=== PATIENT | female | born 1935 | race Caucasian/White ===

== ENCOUNTER → 2020-11-09 | Outpatient (CLI) | payer OTHER, MEDICAID ==
[2016-07-03 11:40] VITALS: BP 125/60
[~2020-11-09] MED LIST: ACET650T10 PO; ALBU2.5V8 IH; AMLO-187 PO; ASPI-630 PO; ATOR20TA58 PO; ATORVASTATIN CA80 MG PO; CLOP75TA PO; DOCU100T11 PO; HYDR-3164 PO; INUL2.5T PO; LISI-130 PO; REGADENOSON 0.4 MG/5 ML DISP.SYRIN. IV ONE; SERT50TA PO; TIOT18CA IH
--- NOTE | 2020-11-09 14:16 | CARD ---
MR#: [id number] Date of Study: 11/09/2020 Ordering Physician: DELTA LOVE, Referring Physician: Kirsten TRIANA: Deyanira Avila [facility] APPROVED REPORT EXAM: Two-dimensional and M-mode echocardiogram with Doppler and color Doppler. Other Information Quality : Technically LimitedHR: 69bpm Rhythm : NSRAtrial Fibrillation INDICATION Chest Pain RISK FACTORS Obesity Hyperlipidemia 2D DIMENSIONS RVDd2.4 (2.9-3.5cm)Left Atrium(2D)4.4 (1.6-4.0cm) IVSd1.1 (0.7-1.1cm)Aortic Root(2D)2.8 (2.0-3.7cm) LVDd3.2 (3.9-5.9cm)LVOT Diameter2.1 (1.8-2.4cm) PWd1.1 (0.7-1.1cm)LVDs2.9 (2.5-4.0cm) FS (%) 8.9 %SV8.3 ml Aortic Valve AoV Peak Talib.169.3cm/sAoV VTI29.1cm AO Peak GR.11.5mmHgLVOT Peak Talib.118.6cm/s AO Mean GR.5mmHgAVA (VMAX)2.47cm2 Mitral Valve MV E Wbrtefpa44.2cm/sMV DECEL MSXP680lb MV A Hwmycljn698.5cm/sE/A Ratio0.6 Tricuspid Valve TR P. Fhqsrtyk720ev/sTR Peak Gr.19mmHg LEFT VENTRICLE The left ventricle is normal size. There is mild concentric left ventricular hypertrophy. The left ve ntricular systolic function is normal and the ejection fraction is within normal range. Estimated ej ection fraction 60-65%. There is normal LV segmental wall motion. Transmitral Doppler flow pattern is Grade I-abnormal relaxation pattern. RIGHT VENTRICLE The right ventricle is normal size. There is normal right ventricular wall thickness. The right ventr icular systolic function is normal. ATRIA The left atrium size is normal. The right atrium size is normal. The interatrial septum is intact wit h no evidence for an atrial septal defect or patent foramen ovale as noted on 2-D or Doppler imaging. AORTIC VALVE The aortic valve is normal in structure and function. Doppler and Color Flow revealed no significant aortic regurgitation. There is no significant aortic valvular stenosis. MITRAL VALVE The mitral valve is normal in structure and function. There is no evidence of mitral valve prolapse. There is no mitral valve stenosis. Doppler and Color-flow revealed trace mitral regurgitation. TRICUSPID VALVE The tricuspid valve is normal in structure and function. Doppler and Color Flow revealed trace tricus pid valve regurgitation. PULMONIC VALVE The pulmonary valve is normal in structure and function. Doppler and Color Flow revealed no pulmonic valvular regurgitation. GREAT VESSELS The aortic root is normal in size. The ascending aorta is normal in size. The IVC is normal in size a nd collapses >50% with inspiration. PERICARDIAL EFFUSION There is no evidence of significant pericardial effusion. Critical Notification Critical Value: No <Conclusion> The left ventricle is normal size. The left ventricular systolic function is normal and the ejection fraction is within normal range. Estimated ejection fraction 60-65%. There is mild concentric left ventricular hypertrophy. Doppler and Color Flow revealed no significant aortic regurgitation. There is no significant aortic valvular stenosis. Doppler and Color-flow revealed trace mitral regurgitation. Doppler and Color Flow revealed trace tricuspid valve regurgitation. Signed by : Steven Da Silva MD Electronically Approved : 11/09/2020 14:14:50
--- NOTE | 2020-11-13 10:15 | RAD ---
MR#: [id number] Date of Study: 11/09/2020 Ordering Physician: DELTA LOVE, Referring Physician: RADHA TRIANA Tech: RT Christiano Henry) (N) APPROVED REPORT Test Type: Pharmacological Stress Nurse/Tech: Rebecca Lopez RN Test Indications: CAD Cardiac History: Hypertension,CABGx3 2004 Medications: See Electronic Medical Record Medical History: See Electronic Medical Record Resting ECG: SB with BBB and PVCs Resting Heart Rate: 59 bpm Resting Blood Pressure: 166/56mmHg Pretest Chest Pain: No chest pain Nurse/Tech Notes S1,S2 and lungs diminished throughtout. Consent: The procedure was explained to the patient in lay terms. Informed consent was witnessed. Leno eout was entered into [employer]. History and Stress Test performed by RT Carl (Gui) (N) Pharm. Details Pharmacologic stress testing was performed using 0.4mg per 5ml of regadenoson given intravenously ove r 7-10 seconds. Stress Symptoms No chest pain or symptoms. POST EXERCISE Reason for Termination: Infusion complete Target HR: No Max HR: 87 bpm 76% of Maximum Predicted HR: 114 bpm Max Blood Pressure: 165/47mmHg Blood Pressure response to exercise: Normal blood pressure response during stress. Heart Rate response to exercise: WNL Chest Pain: No. Arrhythmia: Yes. PVCs INTERPRETATION Stress EKG Conclusion: The resting EKG shows a sinus rhythm, right bundle and nonspecific T wave ayon ges. The stress EKG shows no significant change from baseline. No EKG evidence of stress-induced ischemia. Imaging Protocol IMAGE PROTOCOL: Rest Tc-99m/stress Tc-99m 1 day Rest: Stress: Viability: Radiopharm.Tc99m GgexzvaacZu95n Sestamibi Dose10.7mCi 32mCi Duration 13min. 13min. Img Date 11/09/2020 11/09/2020 Inj-Img [id number]. 45min. Rest Admin Site:IV - Left AntecubitalAdministrator:RT Christiano Henry)(N) Stress Admin Site: IV - Left AntecubitalAdministrator: Ananth Diaz, RT (R)(N) STRESS DATA End Diast. Vol.33.0mlLVEDV index BSA19.0ml End Syst. Vol.1.0mlLVESV index BSA1.0ml Myocardial Mass67.0gEject. Yqdtmazq20.0% Stress Scores Regional WT0.00Summed WT5.00 Regional WM0.00Summed WM0.00 LV Perfusion The stress scans show a small lateral wall defect. The rest scans showed no significant defects. Nuclear imaging shows a relatively small area of reversible ischemia in the lateral wall. Wall Motion Left ventricular systolic function is normal with no regional wall motion abnormalities and an ejecti on fraction of greater than 70%. LV Perf. Quant 17 Seg. SSS8.00 17 Seg. SRS9.00 17 Seg. SDS2.00 Stress Defect Extent (% LAD)0.00Rest Defect Extent (% LAD)11.90Rev. Defect Extent (% LAD)0.00 Stress Defect Extent (% LCX) 71.30Rest Defect Extent (% LCX)65.00Rev. Defect Extent (% LCX)0.00 Stress Defect Extent (% RCA)0.00Rest Defect Extent (% RCA)0.00Rev. Defect Extent (% RCA)0.00 Stress Defect Extent (% BERNARDINO)13.00Rest Defect Extent (% BERNARDINO)16.50Rev. Defect Extent (% BERNARDINO)0.00 Conclusion 1. The patient is an 85-year-old female post bypass surgery. 2. No EKG evidence of stress-induced ischemia. 3. Nuclear imaging shows a relatively small area of reversible ischemia in the lateral wall. 4. Left ventricular systolic function is normal with no regional wall motion abnormalities and an eje ction fraction of greater than 70%. 5. Moderate to moderately low risk Lexiscan nuclear stress test. Signed by : Steven Da Silva MD Electronically Approved : 11/09/2020 14:05:43
== END ==
LOC: NM 08:29
PROVIDERS: ATTEND Internal Medicine Cardiovascular Disease
DX: I25.10 Atherosclerotic heart disease of native coronary artery without angina pectoris (principal); I51.7 Cardiomegaly
CPT/HCPCS: 78452; 93017; 93306; A9500; J2785

== ENCOUNTER 2021-06-30 15:06 | Emergency (ER) | payer OTHER, MEDICAID ==
[~2021-06-30] VITALS: Ht 160 cm; Wt 65.9 kg
[~2021-06-30 15:06] MED LIST changes: -REGADENOSON 0.4 MG/5 ML DISP.SYRIN. IV ONE
[2021-06-30] MEDS ORDERED: IV NORMAL SALINE 1000ML BAG 1,000 ML IV ONE (15:30)
--- NOTE | 2021-06-30 15:52 | RAD ---
EXAMINATION: Chest and pelvis radiographs. VIEWS: Single view of the chest and single view of the pelvis COMPARISON: Chest radiograph dated 06/01/2016 INDICATION:86 years, Female, status post fall, pain and weakness. FINDINGS: Chest: Normal cardiomediastinal silhouette. . Patchy airspace opacity in the right lung base. No ple ural effusion or pneumothorax. No acute osseous process. Median sternotomy wires. Pelvis: No acute fracture, dislocation or subluxation. No soft tissue swelling. Mild degenerative elías nges in both hips and sacroiliac joints. Vascular calcifications in the right upper thigh and pelvis. Partial visualized stents. Moderate amount of stool in the rectum. IMPRESSION: 1. Patchy airspace opacity in the right lung base may represent atelectasis, fibrotic changes, aspira tion or pneumonia. 2. No acute osseous process in the pelvis. Electronically signed by: Delisa Esparza MD (06/30/2021 3:50 PM) [facility]
--- NOTE | 2021-06-30 15:58 | RAD ---
Examination: CT head and cervical spine without contrast CT HEAD INDICATION: Reason: pain, head injury/swelling, s/p fall / Spl. Instructions: / History: COMPARISON: 07/03/2016 Exposure: One or more of the following individualized dose reduction techniques were utilized for thi s examination: 1. Automated exposure control 2. Adjustment of the mA and/or kV according to patient size 3. Use of iterative reconstruction technique TECHNIQUE: 5 mm contiguous axial images were obtained from the skull base to the vertex in both bone and soft tissue algorithm. FINDINGS: Moderate bilateral periventricular white matter hypodensities likely chronic small vessel ischemic di sease. Moderate-sized hypodensity identified in the left frontoparietal hypodensity likely old infarc t. Moderate size hematoma identified in the left posterior parietal scalp. No extra-axial fluid collec tions. No mass effect or midline shift. Ventricular size is appropriate. Basal cisterns are patent. No fractures identified.Shearer-white differentiation is preserved.Globes and orbits are within normal l imits. Paranasal sinuses and mastoid air cells are clear. CT CERVICAL SPINE INDICATION: Reason: pain, head injury/swelling, s/p fall / Spl. Instructions: / History: COMPARISON: 07/03/2016. Technique: 2.5 mm contiguous axial images were obtained from the skull base through the cervicothorac ic junction in both bone and soft tissue algorithm. Additional sagittal and coronal reconstructions were also performed. FINDINGS: Vertebral body height and alignment are maintained. Cervical lordosis is preserved. The l ateral masses of C1 are aligned upon C2. No fractures identified. The bony canal is patent throughout. Moderate intervertebral disc height loss identified in the cervical spine. The paraspinous soft tissues are unremarkable. Visualized intracranial contents are unremarkable. Li near opacification identified in the left apical lung probably scarring changes. IMPRESSION: 1. No acute intracranial findings. Moderate size hematoma identified in the left posterior parietal scalp. 2. Moderate-sized hypodensity identified in the left frontoparietal lobe likely old infarct. 3. No acute fracture cervical spine. 4. Moderate degenerative changes cervical spine. Electronically signed by: Savage Portillo MD (06/30/2021 3:55 PM) [id number]
[2021-06-30 16:37] LABS: BASO % 0 % (0-3); EOS # 0.1 x10^3/uL (0.0-0.7); EOS % 1 % (0-3); HEMATOCRIT 41.8 % (36.0-47.0); HEMOGLOBIN 14.3 g/dL (12.0-15.5); LYMPH # 1.2 x10^3/uL (1.0-4.8); LYMPH % 12 % (24-48); MEAN CORPUSCULAR HEMOGLOBIN 33 pg (25-35); MEAN CORPUSCULAR HGB CONC 34 g/dL (31-37); MEAN CORPUSCULAR VOLUME 96 fL (79-100); MONO # 0.5 x10^3/uL (0.0-1.1); MONO % 5 % (0-9); NEUT # 7.8 x10^3/uL (1.8-7.7); NEUT % 82 % (31-73); PLATELET COUNT 252 x10^3/uL (140-400); RED BLOOD COUNT 4.38 x10^6/uL (3.50-5.40); RED CELL DISTRIBUTION WIDTH 13.2 % (11.5-14.5); WHITE BLOOD COUNT 9.6 x10^3/uL (4.0-11.0)
[2021-06-30 16:52] LABS: CALCIUM 10.3 mg/dL (8.5-10.1); CREATININE 0.8 mg/dL (0.6-1.0); POTASSIUM 3.5 mmol/L (3.5-5.1)
[2021-06-30 16:58] LABS: ALBUMIN 3.7 g/dL (3.4-5.0); MAGNESIUM 2.4 mg/dL (1.8-2.4); TOTAL BILIRUBIN 0.5 mg/dL (0.2-1.0); TOTAL PROTEIN 7.4 g/dL (6.4-8.2)
[2021-06-30 17:05] LABS: CREATINE KINASE 55 U/L (26-192)
--- NOTE | 2021-06-30 18:17 | RAD ---
Three-view left shoulder and three-view left elbow dated 06/30/2021. No comparison available. Clinical data indication: Pain after fall. FINDINGS: 3 views left shoulder show normal bony alignment. No displaced fracture. No periostitis or bone destr uction. No acute osseous or articular abnormality. 3 views of left elbow show normal bony alignment. No displaced fracture. No fat pad elevation to sugg est joint effusion. Mild degenerative changes. IMPRESSION: 1. No acute radiographic abnormality. 2. Mild degenerative changes. Electronically signed by: Wyatt Chavez MD (06/30/2021 6:15 PM) [facility]
--- NOTE | 2021-06-30 18:23 | EKG ---
[facility] [address] [place] [address] Test Date: 2021-06-30 Test Time: 15:49:33 Pat Name: KYLEE SALAZAR Department: Room: Gender: F [employer]: : 1935 Requested By: JOSE MIGUEL HARPER Order Number: [id number] Reading MD: Measurements Intervals [place] Rate: 84 P: 113 DE: 180 QRS: 93 QRSD: 140 T: -29 QT: 394 QTc: 469 Interpretive Statements No previous ECG available for comparison
[2021-06-30 18:30] LABS: BILIRUBIN,URINE NEGATIVE (NEG); CLARITY,URINE CLEAR; COLOR,URINE YELLOW; NITRITE,URINE NEGATIVE (NEG); PROTEIN,URINE NEGATIVE (NEG-TRACE)
--- NOTE | 2021-06-30 18:35 | PHYS DOC ---
Past Medical History Past Medical History: CAD, Cancer, COPD, Hypertension, Stroke, Other Additional Past Medical Histor: lung cancer/radiation therapy,PVD Past Surgical History: Coronary Bypass Surgery, Other Additional Past Surgical Histo: BILAT LEG STENTS Smoking Status: Former Smoker Alcohol Use: None Drug Use: None General Adult EDM: Chief Complaint: TRAUMA ALERT HPI: HPI: Patient is a 86 year old [f__sex] who presents with [] Review of Systems: Review of Systems: Constitutional: Denies fever or chills. [] Eyes: Denies change in visual acuity. [] HENT: Denies nasal congestion or sore throat. [] Respiratory: Denies cough or shortness of breath. [] Cardiovascular: Denies chest pain or edema. [] GI: Denies abdominal pain, nausea, vomiting, bloody stools or diarrhea. [] : Denies dysuria. [] Musculoskeletal: Denies back pain or joint pain. [] Integument: Denies rash. [] Neurologic: Denies headache, focal weakness or sensory changes. [] Endocrine: Denies polyuria or polydipsia. [] Lymphatic: Denies swollen glands. [] Psychiatric: Denies depression or anxiety. [] Heart Score: Risk Factors: Risk Factors: DM, Current or recent (<one month) smoker, HTN, HLP, family history of CAD, obesity. Risk Scores: Score 0 - 3: 2.5% MACE over next 6 weeks - Discharge Home Score 4 - 6: 20.3% MACE over next 6 weeks - Admit for Clinical Observation Score 7 - 10: 72.7% MACE over next 6 weeks - Early Invasive Strategies Current Medications: Current Medications Medications (Trade) Dose Ordered Sig/Devante Start Time Stop Time Status Last Admin Dose Admin Sodium Chloride 1,000 ml @ 1,000 mls/hr 1X ONCE 06/30/21 15:30 06/30/21 16:29 DC 06/30/21 16:02 1,000 MLS/HR Allergies: Allergies: Allergies Coded Allergies Type Severity Reaction Last Updated Verified No Known Drug Allergies 07/09/14 No Physical Exam: PE: Constitutional: Well developed, well nourished, no acute distress, non-toxic appearance. [] HENT: Normocephalic, atraumatic, bilateral external ears normal, oropharynx moist, no oral exudates, nose normal. [] Eyes: PERRLA, EOMI, conjunctiva normal, no discharge. [] Neck: Normal range of motion, no tenderness, supple, no stridor. [] Cardiovascular:Heart rate regular rhythm, no murmur [] Lungs & Thorax: Bilateral breath sounds clear to auscultation [] Abdomen: Bowel sounds normal, soft, no tenderness, no masses, no pulsatile masses. [] Skin: Warm, dry, no erythema, no rash. [] Back: No tenderness, no CVA tenderness. [] Extremities: No tenderness, no cyanosis, no clubbing, ROM intact, no edema. [] Neurologic: Alert and oriented X 3, normal motor function, normal sensory function, no focal deficits noted. [] Psychologic: Affect normal, judgement normal, mood normal. [] Current Patient Data: Labs: Laboratory Tests Test 06/30/21 16:20 06/30/21 16:41 White Blood Count 9.6 x10^3/uL (4.0-11.0) Red Blood Count 4.38 x10^6/uL (3.50-5.40) Hemoglobin 14.3 g/dL (12.0-15.5) Hematocrit 41.8 % (36.0-47.0) Mean Corpuscular Volume 96 fL (79-100) Mean Corpuscular Hemoglobin 33 pg (25-35) Mean Corpuscular Hemoglobin Concent 34 g/dL (31-37) Red Cell Distribution Width 13.2 % (11.5-14.5) Platelet Count 252 x10^3/uL (140-400) Neutrophils (%) (Auto) 82 % (31-73) H Lymphocytes (%) (Auto) 12 % (24-48) L Monocytes (%) (Auto) 5 % (0-9) Eosinophils (%) (Auto) 1 % (0-3) Basophils (%) (Auto) 0 % (0-3) Neutrophils # (Auto) 7.8 x10^3/uL (1.8-7.7) H Lymphocytes # (Auto) 1.2 x10^3/uL (1.0-4.8) Monocytes # (Auto) 0.5 x10^3/uL (0.0-1.1) Eosinophils # (Auto) 0.1 x10^3/uL (0.0-0.7) Basophils # (Auto) 0.0 x10^3/uL (0.0-0.2) Sodium Level 142 mmol/L (136-145) Potassium Level 3.5 mmol/L (3.5-5.1) Chloride Level 104 mmol/L (98-107) Carbon Dioxide Level 32 mmol/L (21-32) Anion Gap 6 (6-14) Blood Urea Nitrogen 19 mg/dL (7-20) Creatinine 0.8 mg/dL (0.6-1.0) Estimated GFR (Cockcroft-Gault) 68.0 BUN/Creatinine Ratio 24 (6-20) H Glucose Level 110 mg/dL (70-99) H Lactic Acid Level 1.1 mmol/L (0.4-2.0) Calcium Level 10.3 mg/dL (8.5-10.1) H Magnesium Level 2.4 mg/dL (1.8-2.4) Total Bilirubin 0.5 mg/dL (0.2-1.0) Aspartate Amino Transferase (AST) 19 U/L (15-37) Alanine Aminotransferase (ALT) 20 U/L (14-59) Alkaline Phosphatase 65 U/L (46-116) Creatine Kinase 55 U/L (26-192) Creatine Kinase MB (Mass) 1.4 ng/mL (0.0-3.6) Creatine Kinase MB Relative Index % (0-4) Troponin I Quantitative < 0.017 ng/mL (0.000-0.055) Total Protein 7.4 g/dL (6.4-8.2) Albumin 3.7 g/dL (3.4-5.0) Albumin/Globulin Ratio 1.0 (1.0-1.7) SARS-CoV-2 Antigen (Rapid) Negative (NEGATIVE) Laboratory Tests 06/30/21 16:20 Laboratory Tests 06/30/21 16:20 Vital Signs: Vital Signs Date Time Temp Pulse Resp B/P (MAP) Pulse Ox O2 Delivery O2 Flow Rate FiO2 06/30/21 16:37 88 179/84 (115) 96 Room Air 06/30/21 15:52 25 06/30/21 15:06 99.1 99.1 EKG: EKG: @ 1549 NSR at 84bpm, NO ST elevation, QRS 140ms, QT/QTc 394/469ms, t wave inversion III and aVF and V3, occasional PVC, Q wave V1-V2 Radiology/Procedures: Radiology/Procedures: PROCEDURE: PORTABLE CHEST 1V & PELVIS 1V EXAMINATION: Chest and pelvis radiographs. VIEWS: Single view of the chest and single view of the pelvis COMPARISON: Chest radiograph dated 06/01/2016 INDICATION:86 years, Female, status post fall, pain and weakness. FINDINGS: Chest: Normal cardiomediastinal silhouette. . Patchy airspace opacity in the right lung base. No pleural effusion or pneumothorax. No acute osseous process. Median sternotomy wires. Pelvis: No acute fracture, dislocation or subluxation. No soft tissue swelling. Mild degenerative changes in both hips and sacroiliac joints. Vascular calcifications in the right upper thigh and pelvis. Partial visualized stents. Moderate amount of stool in the rectum. IMPRESSION: 1. Patchy airspace opacity in the right lung base may represent atelectasis, fibrotic changes, aspiration or pneumonia. 2. No acute osseous process in the pelvis. Electronically signed by: Delisa Esparza MD (06/30/2021 3:50 PM) [facility] PROCEDURE: CT HEAD AND CERVICAL SPINE WO Examination: CT head and cervical spine without contrast CT HEAD INDICATION: Reason: pain, head injury/swelling, s/p fall / Spl. Instructions: / History: COMPARISON: 07/03/2016 Exposure: One or more of the following individualized dose reduction techniques were utilized for this examination: 1. Automated exposure control 2. Adjustment of the mA and/or kV according to patient size 3. Use of iterative reconstruction technique TECHNIQUE: 5 mm contiguous axial images were obtained from the skull base to the vertex in both bone and soft tissue algorithm. FINDINGS: Moderate bilateral periventricular white matter hypodensities likely chronic small vessel ischemic disease. Moderate-sized hypodensity identified in the left frontoparietal hypodensity likely old infarct. Moderate size hematoma identified in the left posterior parietal scalp. No extra-axial fluid collections. No mass effect or midline shift. Ventricular size is appropriate. Basal cisterns are patent. No fractures identified.Shearer-white differentiation is preserved.Globes and orbits are within normal limits. Paranasal sinuses and mastoid air cells are clear. CT CERVICAL SPINE INDICATION: Reason: pain, head injury/swelling, s/p fall / Spl. Instructions: / History: COMPARISON: 07/03/2016. Technique: 2.5 mm contiguous axial images were obtained from the skull base through the cervicothoracic junction in both bone and soft tissue algorithm. Additional sagittal and coronal reconstructions were also performed. FINDINGS: Vertebral body height and alignment are maintained. Cervical lordosis is preserved. The lateral masses of C1 are aligned upon C2. No fractures identified. The bony canal is patent throughout. Moderate intervertebral disc height loss identified in the cervical spine. The paraspinous soft tissues are unremarkable. Visualized intracranial contents are unremarkable. Linear opacification identified in the left apical lung probably scarring changes. IMPRESSION: 1. No acute intracranial findings. Moderate size hematoma identified in the left posterior parietal scalp. 2. Moderate-sized hypodensity identified in the left frontoparietal lobe likely old infarct. 3. No acute fracture cervical spine. 4. Moderate degenerative changes cervical spine. Electronically signed by: Savage Portillo MD (06/30/2021 3:55 PM) [id number] PROCEDURE: ELBOW LEFT 3V & SHOULDER LEFT 3V Three-view left shoulder and three-view left elbow dated 06/30/2021. No comparison available. Clinical data indication: Pain after fall. FINDINGS: 3 views left shoulder show normal bony alignment. No displaced fracture. No periostitis or bone destruction. No acute osseous or articular abnormality. 3 views of left elbow show normal bony alignment. No displaced fracture. No fat pad elevation to suggest joint effusion. Mild degenerative changes. IMPRESSION: 1. No acute radiographic abnormality. 2. Mild degenerative changes. Electronically signed by: Wyatt Chavez MD (06/30/2021 6:15 PM) [facility] Course & Med Decision Making: Course & Med Decision Making Pertinent Labs and Imaging studies reviewed. (See chart for details) Patient stable for discharge with outpatient follow-up with PCP. Discussed findings and plan with patient and family, who acknowledge understanding and agreement. Audrey Disclaimer: Audrey Disclaimer: This electronic medical record was generated, in whole or in part, using a voice recognition dictation system. Departure Departure Impression: Primary Impression: Fall Qualified Codes: W19.XXXA - Unspecified fall, initial encounter Additional Impressions: Scalp hematoma Qualified Codes: S00.03XA - Contusion of scalp, initial encounter Contusion of left upper arm Qualified Codes: S40.022A - Contusion of left upper arm, initial encounter Disposition: HOME / SELF CARE / HOMELESS Condition: STABLE Referrals: GONZALEZ BRIZUELA MD (PCP) Patient Instructions: Contusion, [id number], Fall Prevention and Home Safety, Cdxl-[id number], Scalp Hematoma WYATT HARPER DO Jun 30, 2021 18:35
[2021-06-30 18:43] LABS: BACTERIA,URINE 0 /HPF (0-FEW); RBC,URINE 0 /HPF (0-2); WBC,URINE 0 /HPF (0-4)
[2021-06-30 18:52] VITALS: BP 210/91
--- NOTE | 2021-07-02 08:59 | NUR ---
IP: Informed pt of negative covid test. Pt and daughter verbalized understanding.
== END 2021-06-30 19:30 | disposition home or self-care (01) ==
LOC: ER 15:06
DX: S00.03XA Contusion of scalp, initial encounter (principal); Z20.822 Contact with and (suspected) exposure to COVID-19; S40.022A Contusion of left upper arm, initial encounter; M25.512 Pain in left shoulder; M25.522 Pain in left elbow; J44.9 Chronic obstructive pulmonary disease, unspecified; I10 Essential (primary) hypertension; I25.10 Atherosclerotic heart disease of native coronary artery without angina pectoris; Z87.891 Personal history of nicotine dependence; Z95.1 Presence of aortocoronary bypass graft; Z95.5 Presence of coronary angioplasty implant and graft; W18.39XA Other fall on same level, initial encounter; Y93.89 Activity, other specified; Y92.89 Other specified places as the place of occurrence of the external cause; Y99.8 Other external cause status
CPT/HCPCS: 36415; 70450; 71045; 72125; 72170; 73030; 73080; 80053; 81001; 82553; 83605; 83735; 84484; 85025; 87426; 93005; 96360; 99285; J7030; U0003; U0005